=== PATIENT | female | born 1930 | race Caucasian/White ===

== ENCOUNTER 2018-10-06 14:57 | Emergency (ER) | payer MEDICARE ==
[2018-10-06 15:35] VITALS: BP 156/61
--- NOTE | 2018-10-06 16:50 | UC ---
Hip/Pelvis Pain - HPI Summary HPI Summary: Pt presents with c/o right hip and buttock pain s/p falling from standing height. Pt denies dizziness, chest pain or LOC. Pt states that she "twisted to fast and tripped over her own feet" Pt states she was not expecting fall and yolanda fall "really shook her up". Pt is able to bear weight and ambulate. - History Of Current Complaint Chief Complaint: UCLowerExtremity Stated Complaint: S/P FALL-BUTTOCKS PAIN,SHAKY Time Seen by Provider: 10/06/18 16:35 Hx Obtained From: Patient ?: No Onset/Duration: Sudden Onset Timing: Constant Severity Initially: Moderate Severity Currently: Mild Pain Intensity: 5 Location: Discrete At: - right hip and lateral upper thigh Character Of Pain: Dull, Aching, Stiffness Aggravating Factor(s): Other - palpation Alleviating Factor(s): Rest Associated Signs And Symptoms: Positive: Negative - Risk Factors Septic Arthritis Risk Factor: Extremes of Age - Allergies/Home Medications Allergies/Adverse Reactions: Allergies Allergy/AdvReac Type Severity Reaction Status Date / Time No Known Allergies Allergy Verified 10/06/18 15:25 Home Medications: Home Medications Atenolol TAB* [Tenormin TAB* 25 MG] 25 mg PO BEDTIME 10/06/18 [History Confirmed 10/06/18] Furosemide 40 mg PO DAILY PRN 10/06/18 [History Confirmed 10/06/18] Lisinopril 20 mg PO DAILY 10/06/18 [History Confirmed 10/06/18] Terazosin CAP* [Hytrin CAP*] 5 mg PO BEDTIME 10/06/18 [History Confirmed ] PMH/Surg Hx/FS Hx/Imm Hx Previously Healthy: Yes Cardiovascular History: Cardiac Disease, Hypertension - Surgical History Surgical History: Yes Surgery Procedure, Year, and Place: T&A - Family History Known Family History: Positive: Cardiac Disease - Social History Occupation: Retired Lives: With Family Alcohol Use: None Substance Use Type: None Smoking Status (MU): Never Smoked Tobacco Have You Smoked in the Last Year: No - Immunization History Vaccination Up to Date: Yes Review of Systems All Other Systems Reviewed And Are Negative: Yes Constitutional: Positive: Negative Skin: Positive: Negative Eyes: Positive: Blurred Vision ENT: Positive: Negative Respiratory: Positive: Negative Cardiovascular: Positive: Negative Gastrointestinal: Positive: Negative Genitourinary: Positive: Negative Motor: Positive: Negative Neurovascular: Positive: Negative Musculoskeletal: Positive: Myalgia - right lateral upper thigh and rigth buttock Neurological: Positive: Negative Psychological: Positive: Negative Is Patient Immunocompromised?: No Physical Exam Triage Information Reviewed: Yes Appearance: Well-Appearing, No Pain Distress Vital Signs: Initial Vital Signs Temp 98.9 F 10/06/18 15:30 Pulse 50 10/06/18 15:30 Resp 20 10/06/18 15:30 BP 156/61 10/06/18 15:30 Pulse Ox 97 10/06/18 15:30 Vital Signs Reviewed: Yes Eye Exam: Normal ENT Exam: Normal ENT: Positive: Hearing grossly normal Dental Exam: Normal Neck exam: Normal Respiratory Exam: Normal Cardiovascular Exam: Normal Musculoskeletal Exam: Normal Musculoskeletal: Positive: Strength Intact, ROM Intact, Other: - no bruising, able to bear weight, full ROM, c/o pain right lateral upper thigh with palpation. Pt was sitting comfortably in WC and able to bear weight and ambulate without c/o pain. Neurological Exam: Normal Psychological Exam: Normal Skin Exam: Normal, Other - no bruises Hip Injury Course/Dx - Course Course Of Treatment: I discussed getting an xray of affected area and patient refused. I urged the patient to get an xray but she stated that she "felt fine now and she was not in much pain". Pt stated that she took an 8 week course on fall prevention and how to manage if she falls at [facility]. - Differential Dx/Diagnosis Differential Diagnosis/HQI/PQRI: Contusion, Fracture, Hematoma Provider Diagnosis: Pain of right lateral upper thigh, Fall Discharge - Sign-Out/Discharge Documenting (check all that apply): Patient Departure All imaging exams completed and their final reports reviewed: No Studies - Pt refused - Discharge Plan Condition: Stable Disposition: HOME Patient Education Materials: Fall Prevention (ED), Hip Contusion (ED) Referrals: Panfilo Middleton MD [Medical Doctor] - If Needed Michelle Aguirre MD [Primary Care Provider] - If Needed - Billing Disposition and Condition Condition: STABLE Disposition: Home
== END 2018-10-06 17:01 | disposition home or self-care (01) ==
LOC: UCCORT 14:57
DX: M79.651 Pain in right thigh (principal); I10 Essential (primary) hypertension
CPT/HCPCS: 99201; G0463